=== PATIENT | male | born 1980 | race Caucasian/White ===

== ENCOUNTER 2019-11-27 10:18 | Emergency (ER) | payer OTHER ==
[~2019-11-27] VITALS: Ht 180.3 cm; Wt 131.5 kg
[~2019-11-27 10:18] MED LIST: MULVITA PO; PRED10 PO
[2019-11-27] MEDS ORDERED: OMEP20ER PO (10:59)
[2019-11-27] MEDS ORDERED: ZESTRIL40 MG PO (10:59)
[2019-11-27] MEDS ORDERED: ATOR20 PO (10:59)
[2019-11-27] MEDS ORDERED: TRAZ100 PO (11:00)
[2019-11-27] MEDS ORDERED: ELIQUIS5 MG PO (11:00)
[2019-11-27] MEDS ORDERED: NEURONTIN300 MG PO (11:00)
[2019-11-27] MEDS ORDERED: CITA20 PO (11:00)
[2019-11-27 11:17] LABS: BASOPHILS ABSOLUTE AUTO 0.05 K/mm3 (0.00-0.23); BASOPHILS PERCENT AUTO 0 % (0-2); EOSINOPHILS ABSOLUTE AUTO 0.14 K/mm3 (0.00-0.68); EOSINOPHILS PERCENT AUTO 1 % (0-6); Hematocrit 43.2 % (37.0-53.0); Hemoglobin 14.5 g/dL (13.5-17.5); IMMATURE GRAN ABSOLUTE AUTO 0.06 K/mm3 (0.00-0.10); IMMATURE GRAN PERCENT AUTO 1 % (0-1); LYMPHOCYTES ABSOLUTE AUTO 1.47 K/mm3 (0.84-5.20); LYMPHOCYTES PERCENT AUTO 12 % (21-46); MONOCYTES ABSOLUTE AUTO 0.58 K/mm3 (0.16-1.47); MONOCYTES PERCENT AUTO 5 % (4-13); Mean Corpuscular HGB 29.4 pg (26.0-34.0); Mean Corpuscular HGB Conc 33.6 g/dL (31.5-36.5); Mean Corpuscular Volume 87 fL (80-100); Mean Platelet Volume 10.4 fL (9.1-12.4); NEUTROPHILS ABSOLUTE AUTO 9.96 K/mm3 (1.96-9.15); NEUTROPHILS PERCENT AUTO 81 % (41-73); Platelet Count 266 K/mm3 (150-400); RDW Coefficient Variation 13.3 % (11.7-14.2); RDW Standard Deviation 42.5 fL (35.1-46.3); Red Blood Cell Count 4.94 M/mm3 (4.30-5.90); White Blood Cell Count 12.26 K/mm3 (4.00-11.30)
[2019-11-27 11:35] LABS: Alanine Aminotransfer (ALT/SGP 66 U/L (12-78); Albumin, Blood 3.6 g/dL (3.4-5.0); Albumin/Globulin Ratio 0.9 (0.8-1.8); Alk Phos 217 U/L (50-136); Anion Gap 8 mmol/L (6-16); Aspartate Aminotrans (AST/SGOT 33 U/L (12-37); Bilirubin, Total 0.4 mg/dL (0.1-1.0); Blood Urea Nitrogen 9 mg/dL (8-24); Bun/Creatinine Ratio 11.4 (12.0-20.0); CO2, Blood 26 mmol/L (21-32); Calcium, Blood 8.8 mg/dL (8.5-10.1); Chloride, Blood 105 mmol/L (98-108); Creatinine, Blood 0.79 mg/dL (0.60-1.20); Globulin, Blood 4.1 g/dL (2.2-4.0); Glomerular Filtration Rate >60 (60-); Glucose, Blood 86 mg/dL (70-99); Sodium, Blood 139 mmol/L (136-145); Total Protein, Blood 7.7 g/dL (6.4-8.2); Troponin I <0.015 ng/mL (0.000-0.040)
== END 2019-11-27 12:26 | disposition home or self-care (01) ==
LOC: ER 10:18
PROVIDERS: Emergency Medicine
DX: R55 Syncope and collapse (principal); S09.90XA Unspecified injury of head, initial encounter; Z88.0 Allergy status to penicillin; Z86.73 Personal history of transient ischemic attack (TIA), and cerebral infarction without residual deficits; W22.8XXA Striking against or struck by other objects, initial encounter
CPT/HCPCS: 36415; 70450; 71046; 80053; 84484; 85025; 93005; 93010; 99284-25

== ENCOUNTER → 2020-02-23 | Outpatient (CLI) | payer OTHER ==
[~2020-02-23] MED LIST changes: +ATOR20 PO; +CITA20 PO; +ELIQUIS5 MG PO; +NEURONTIN300 MG PO; +OMEP20ER PO; +TRAZ100 PO; +ZESTRIL40 MG PO
== END | disposition home or self-care (01) ==
LOC: LAB SHORT 16:35 → LAB EV 16:35
DX: L02.91 Cutaneous abscess, unspecified (principal)
CPT/HCPCS: 87070; 87205